=== PATIENT | female | born 1940 | race Caucasian/White ===

== ENCOUNTER 2018-11-26 07:34 | Day surgery (SDC) | payer MEDICARE, OTHER ==
[~2018-11-26 07:34] MED LIST: BUPIVACAINE HCL 0.75% INJ/PF (7.5 MG/1 ML) 10 ML SDV OS PRN; KETOROLAC TROMETHAMINE 0.45% 4 DROP/0.4 ML DROPERETTE OS PRN; LIDOCAINE 4% INJ/PF (40 MG/ML) 5 ML AMPUL OS PRN
[2018-11-26] MEDS: BESIFLOXACIN HCL 0.6% OPH SUSP 5 ML BOTTLE OS PRN ×4 (08:42→09:48)
[2018-11-26] MEDS: TROPICAMIDE 1% OPH SOLN 3 ML OS PRN ×3 (08:42→09:02)
[2018-11-26] MEDS: CYCLOPENTOLATE 0.2%/PHENYLEPHRINE 1% OPH SOLN 2 ML OS PRN ×3 (08:42→09:02)
[2018-11-26] MEDS: TETRACAINE HCL 0.5% OPH SOLN 0.6 ML DROPERETTE OS PRN ×2 (08:43→09:02)
[2018-11-26] MEDS ORDERED: FENTANYL CITRATE INJ/PF 100 MCG/2 ML AMPUL ONE (09:27)
[2018-11-26] MEDS ORDERED: MIDAZOLAM 2 MG/2 ML INJ ONE (09:27)
[2018-11-26] MEDS: CHONDR SU A NA/HYALUR INTRAOC KIT (SURGICARE) ONE ×2 (09:36)
[2018-11-26] MEDS: LIDOCAINE 1% INJ-PF (10 MG/ML) 30 ML SDV ONE ×2 (09:36)
[2018-11-26] MEDS: EPINEPHRINE INJ/PF 1 MG/1 ML AMPULE ONE ×2 (09:36)
[2018-11-26] MEDS: DORZOLAMIDE HCL 2%/TIMOLOL MALEAT 0.5% OPH SOLN 10 ML OS PRN ×2 (09:48)
--- NOTE | 2018-11-26 10:02 | [facility] OPERATIVE REPORT E ---
[facility] Operative Report NAME: TACHO GOMES AGE: 78Y DATE OF SURGERY: 11/26/2018 ROOM: PREOPERATIVE DIAGNOSIS: CATARACT, LEFT EYE. POSTOPERATIVE DIAGNOSIS: CATARACT, LEFT EYE. PROCEDURE PERFORMED: PHACOEMULSIFICATION WITH POSTERIOR CHAMBER INTRAOCULAR LENS, LEFT EYE. SURGEON: JONAS BAPTISTE MD ANESTHESIA: TOPICAL WITH MAC. INDICATIONS FOR SURGERY: Difficulty driving. PROCEDURE: The patient was brought to the Operating Room and placed on the operative table. Following tetracaine drops, topical anesthesia was administered. This consisted of instrument wipe pledgets soaked in a solution of 4% Xylocaine mixed with 0.75% Marcaine in a 1:2 ratio. A 2 x 1 cm pledget was placed in the superior fornix. A 1 x 1 cm pledget was placed in the inferior fornix. The eye was patched shut for 5 minutes. The patch was removed. The eye was sterilely prepped and draped in the usual manner. Lid speculum was placed in the eye. The pledgets were removed. 4-0 black silk sutures were placed around the superior and the inferior rectus muscles to be used as traction. A conjunctival peritomy was made at the 10 o'clock position. Hemostasis was obtained with bipolar cautery. A posterior limbal groove was created using a crescent knife and dissected anteriorly towards the cornea. A sharp point blade was used to create a paracentesis site at the 2 o'clock position. A 2.4 mm keratome was used to enter the anterior chamber through the groove. Viscoelastic was injected into the anterior chamber. An anterior capsulotomy was performed using Utrata forceps in a capsulorrhexis fashion. Hydrodissection and hydrodelineation were performed. Phacoemulsification was performed in [id number]-irq-fwyghld technique. A total of 5.98 CDE phaco time was used. Following this, the I/A unit was used to remove residual cortex. Viscoelastic was injected into the capsular bag. Intraocular lens model SN60WF, 19.0 diopters, serial number [id number] was placed in the capsular bag. The I/A unit was used to remove residual viscoelastic. The wound was seen to be watertight under high and low pressure, and no sutures were placed. The intraocular lens was well centered. The pressure was adjusted in the eye to normal pressure. The 4-0 black silk sutures and lid speculum were removed. The eye was shielded after Besivance drops were placed. The patient tolerated the procedure well and was sent to the Recovery Room in good condition. DICTATING PHYSICIAN: JONAS BAPTISTE M.D. DICTATING PHYSICIAN: JONAS BAPTISTE M.D. [id number] PHY#: [id number] ID: [id number] JOB#: [id number] ACCT: [id number] cc:JONAS BAPTISTE M.D. >
--- NOTE | 2018-11-26 10:03 | [facility] DISCHARGE SUMMARY E ---
[facility] Discharge Summary NAME: TACHO GOMES AGE: 78Y ADMITTED: 11/26/2018 DISCHARGED: 11/26/2018 FINAL DIAGNOSIS: CATARACT, LEFT EYE HOSPITAL COURSE: The patient is a 78-year-old lady who underwent uneventful cataract extraction with intraocular lens implant, left eye on 11/26/2018. She will be discharged to home. She is instructed to resume preoperative medications, take Tylenol as needed for discomfort, to keep her eye shielded, to use Besivance, Durezol and PROLENSA at 3 p.m. and 8 p.m., and to follow up in my office in 1 day. DICTATING PHYSICIAN: JONAS BAPTISTE M.D. [id number] PHY#: [id number] ID: [id number] JOB#: [id number] ACCT: [id number] cc:JONAS BAPTISTE M.D. >
== END 2018-11-26 10:43 | disposition home or self-care (01) ==
LOC: SC 07:34
PROVIDERS: ATTEND Ophthalmology
DX: H25.813 Combined forms of age-related cataract, bilateral (principal); H53.2 Diplopia; H04.123 Dry eye syndrome of bilateral lacrimal glands; H35.3131 Nonexudative age-related macular degeneration, bilateral, early dry stage; D64.9 Anemia, unspecified; K21.9 Gastro-esophageal reflux disease without esophagitis; I10 Essential (primary) hypertension; E78.00 Pure hypercholesterolemia, unspecified; Z88.6 Allergy status to analgesic agent; Z88.2 Allergy status to sulfonamides; Z79.899 Other long term (current) drug therapy; M19.049 Primary osteoarthritis, unspecified hand
CPT/HCPCS: 66984; V2632; J2250; J3490 ×4; A9270; J0171; J3010; 142

== ENCOUNTER 2018-12-17 06:57 | Day surgery (SDC) | payer MEDICARE, OTHER ==
[~2018-12-17 06:57] MED LIST changes: +BUPIVACAINE HCL 0.75% INJ/PF (7.5 MG/1 ML) 10 ML SDV OD PRN; -BUPIVACAINE HCL 0.75% INJ/PF (7.5 MG/1 ML) 10 ML SDV OS PRN; +KETOROLAC TROMETHAMINE 0.45% 4 DROP/0.4 ML DROPERETTE OD PRN; -KETOROLAC TROMETHAMINE 0.45% 4 DROP/0.4 ML DROPERETTE OS PRN; +LIDOCAINE 4% INJ/PF (40 MG/ML) 5 ML AMPUL OD PRN; -LIDOCAINE 4% INJ/PF (40 MG/ML) 5 ML AMPUL OS PRN; +MIDAZOLAM 2 MG/2 ML INJ ONE
[2018-12-17] MEDS: TETRACAINE HCL 0.5% OPH SOLN 0.6 ML DROPERETTE OD PRN ×2 (07:09→07:30)
[2018-12-17] MEDS: TROPICAMIDE 1% OPH SOLN 3 ML OD PRN ×3 (07:10→07:29)
[2018-12-17] MEDS: CYCLOPENTOLATE 0.2%/PHENYLEPHRINE 1% OPH SOLN 2 ML OD PRN ×3 (07:10→07:29)
[2018-12-17] MEDS: BESIFLOXACIN HCL 0.6% OPH SUSP 5 ML BOTTLE OD PRN ×4 (07:10→08:00)
[2018-12-17] MEDS ORDERED: FENTANYL CITRATE INJ/PF 100 MCG/2 ML AMPUL ONE (07:14)
[2018-12-17] MEDS: LIDOCAINE 1% INJ-PF (10 MG/ML) 30 ML SDV ONE ×2 (07:46)
[2018-12-17] MEDS: CHONDR SU A NA/HYALUR INTRAOC KIT (SURGICARE) ONE ×2 (07:46)
[2018-12-17] MEDS: EPINEPHRINE INJ/PF 1 MG/1 ML AMPULE ONE ×2 (07:46)
[2018-12-17] MEDS: DORZOLAMIDE HCL 2%/TIMOLOL MALEAT 0.5% OPH SOLN 10 ML OD PRN ×2 (08:00)
--- NOTE | 2018-12-17 08:53 | [facility] OPERATIVE REPORT E ---
[facility] Operative Report NAME: TACHO GOMES AGE: 78Y DATE OF SURGERY: 12/17/2018 ROOM: PREOPERATIVE DIAGNOSIS: Cataract, right eye. POSTOPERATIVE DIAGNOSIS: Cataract, right eye. OPERATION: Phacoemulsification with posterior chamber intraocular lens, right eye. SURGEON: JONAS BAPTISTE M.D. ANESTHESIA: Topical with MAC. INDICATIONS FOR SURGERY: Imbalance following cataract surgery in the left eye. PROCEDURE: The patient was brought to the operating room and placed on the operative table. Following tetracaine drops, topical anesthesia was administered. This consisted of instrument wipe pledgets soaked in a solution of 4% Xylocaine mixed with 0.75% Marcaine in a 1:2 ratio. A 2 x 1 cm pledget was placed in the superior fornix. A 1 x 1 cm pledget was placed in the inferior fornix. The eye was patched shut for 5 minutes. The patch was removed. The eye was sterilely prepped and draped in the usual manner. Lid speculum was placed in the eye. The pledgets were removed and 4-0 black silk sutures were placed around the superior and the inferior rectus muscles to be used as traction. A conjunctival peritomy was made at the 10 o'clock position. Hemostasis was obtained with bipolar cautery. A posterior limbal groove was created using a crescent knife and dissected anteriorly towards the cornea. A sharp point blade was used to create a paracentesis site at the 2 o'clock position. A 2.4 mm keratome was used to enter the anterior chamber through the groove. Viscoelastic was injected into the anterior chamber. An anterior capsulotomy was performed using Utrata forceps in a capsulorrhexis fashion. Hydrodissection and hydrodelineation were performed. Phacoemulsification was performed in wiabqa-uyu-jrljdgd technique. Total phaco time was 6.18 CDE. Following this, the I/A unit was used to remove residual cortex. Viscoelastic was injected into the capsular bag. Intraocular lens model SN60WF, 20.0 diopters, serial number [id number], was placed in the capsular bag. The I/A unit was used to remove residual viscoelastic. The wound was seen to be watertight under high and low pressure, and no sutures were placed. The intraocular lens was well centered. The pressure was adjusted in the eye to normal pressure. The 4-0 black silk sutures and lid speculum were removed. The eye was shielded after Besivance drops were placed. The patient tolerated the procedure well and was sent to the recovery room in good condition. DICTATING PHYSICIAN: JONAS BAPTISTE M.D. [id number] PHY#: [id number] ID: [id number] JOB#: [id number] ACCT: [id number] cc:JONAS BAPTISTE M.D. >
--- NOTE | 2018-12-17 08:54 | [facility] DISCHARGE SUMMARY E ---
[facility] Discharge Summary NAME: TACHO GOMES AGE: 78Y ADMITTED: 12/17/2018 DISCHARGED: 12/17/2018 FINAL DIAGNOSIS: Cataract, right eye. HOSPITAL COURSE: The patient is a 78-year-old lady who underwent uneventful cataract extraction with intraocular lens implant, right eye, on 12/17/2018. She will be discharged to home. She was instructed to resume preoperative medications; to take Tylenol as needed for discomfort; to keep her eye shielded; to use Durezol, Prolensa, and Besivance at 3 p.m. and 8 p.m.; and to follow up in my office in 1 day. DICTATING PHYSICIAN: JONAS BAPTISTE M.D. [id number] Y#: [id number] ID: [id number] JOB#: [id number] ACCT: [id number] cc:JONAS BAPTISTE M.D. >
== END 2018-12-17 08:36 | disposition home or self-care (01) ==
LOC: SC 06:57
PROVIDERS: ATTEND Ophthalmology
DX: H25.811 Combined forms of age-related cataract, right eye (principal); Z96.1 Presence of intraocular lens; I10 Essential (primary) hypertension; Z79.899 Other long term (current) drug therapy; K21.9 Gastro-esophageal reflux disease without esophagitis; Z88.2 Allergy status to sulfonamides
CPT/HCPCS: 66984; V2632; J2250; J3490 ×4; A9270; J0171; J3010; 142